=== PATIENT | male | born 1950 | race Caucasian/White ===

== ENCOUNTER 2017-03-26 07:09 | Day surgery (SDC) | payer MEDICARE, BC ==
[~2017-03-26 07:09] MED LIST: Lactated Ringers 1,000 ML IV SCH
[2017-03-26] MEDS ORDERED: Lactated Ringers 1,000 ML IV SCH (07:45)
[2017-03-26] MEDS ORDERED: Propofol 200 MG/20 ML SDV IV ONE (09:15)
--- NOTE | 2017-03-26 09:42 | PCM.OPNOTE ---
- General Post-Op/Procedure Note Date of Surgery/Procedure: 03/26/17 Operative Procedure(s): c scope Findings: normal exam Pre Op Diagnosis: screening Post-Op Diagnosis: normal exam Anesthesia Technique: MAC Primary Surgeon: Harsh Galvez Anesthesia Provider: Damian Corey Pathology: none Complications: None Condition: Good Free Text/Narrative:: see dictation
--- NOTE | 2017-03-26 10:08 | OR ---
DATE OF OPERATION: 03/26/2017 SURGEON: Harsh Galvez MD PROCEDURE PERFORMED: Colonoscopy. PREOPERATIVE DIAGNOSIS: Need for screening C-scope. POSTOPERATIVE DIAGNOSIS: Normal exam. INDICATIONS FOR PROCEDURE: This is a 67-year-old white male, who presents for a screening colonoscopy. He was offered and accepted same. DESCRIPTION OF OPERATION: After an excellent IV sedation was administered, digital rectal exam was performed. No marked abnormality was noted. The flexible colonoscope was inserted and advanced to the cecum without difficulty. The prep was excellent. The following findings were noted. Ascending colon, unremarkable. Transverse colon, unremarkable. Descending colon, unremarkable. Sigmoid and rectum, unremarkable. Colon was deflated. The scope was removed. The patient tolerated the procedure well, and was taken to recovery room in good condition. Repeat colonoscopy in 10 years. /[id number] /MODL
[2017-03-26 10:24] VITALS: BP 138/64
== END 2017-03-26 10:33 | disposition home or self-care (01) ==
LOC: FB.SDS 07:09
PROVIDERS: ATTEND Surgery
DX: Z12.11 Encounter for screening for malignant neoplasm of colon (principal); E78.4 Other hyperlipidemia; M19.019 Primary osteoarthritis, unspecified shoulder; H40.1131 Primary open-angle glaucoma, bilateral, mild stage; I10 Essential (primary) hypertension; Z90.89 Acquired absence of other organs; Z79.899 Other long term (current) drug therapy
CPT/HCPCS: 00810; 45378; J2704; J7120

== ENCOUNTER 2019-05-04 15:24 | Inpatient (IN) | payer BC, MEDICARE ==
[2019-05-04] MEDS ORDERED: Sodium Chloride 0.9% 10 ML Syringe FLUSH PRN (15:50)
--- NOTE | 2019-05-04 16:57 | PCM.HP.2 ---
H&P History of Present Illness - General Date of Service: 05/04/19 Admit Problem/Dx: Admission Diagnosis/Problem Admission Diagnosis/Problem Pneumonia Source of Information: Patient History Limitations: Reports: No Limitations - History of Present Illness Initial Comments - Free Text/Narative: This is a 69-year-old male patient that's had over two-week history of cough that's productive. He has progressively become weaker. He saw Ioana Almazan who diagnosed a left lower lobe pneumonia and felt he should be admitted. He says of fevers and chills but no vomiting. Can feel short of breath at times but no wheezing. He says he coughed so hard that is incontinent of urine and stool at times. He has not been getting any better and has not been treated as of yet. He states there is a red tinges in sputum thinks his blood. - Related Data Allergies/Adverse Reactions: Allergies Allergy/AdvReac Type Severity Reaction Status Date / Time No Known Allergies Allergy Verified 03/02/16 04:16 Home Medications: Home Meds Aspirin [Ecotrin EC] 81 mg PO DAILY 03/25/17 [History] Atenolol/Chlorthalidone [Atenolol-Chlorthalidone 50-25] 1 tab PO DAILY 03/25/17 [History] Latanoprost 1 drop EYEBOTH BEDTIME 03/25/17 [History] atorvaSTATin [Lipitor] 40 mg PO DAILY 03/25/17 [History] Ibuprofen 800 mg PO TID PRN 05/04/19 [History] Past Medical History HEENT History: Reports: Glaucoma, Impaired Vision Cardiovascular History: Reports: High Cholesterol, Hypertension Respiratory History: Reports: None Gastrointestinal History: Reports: None Genitourinary History: Reports: None Neurological History: Reports: Concussion, Seizure Other Neuro History: HAD CONCUSSION 02/22/1977. DEVELOPED SEIZURE 04/23/1977. [facility] TOOK MED FOR THIS, BUT STATES HAS NOT BEEN ON MEDS SINCE 1978. Psychiatric History: Reports: None Endocrine/Metabolic History: Reports: None Hematologic History: Reports: None Immunologic History: Reports: None Oncologic (Cancer) History: Reports: None Dermatologic History: Reports: None - Infectious Disease History Infectious Disease History: Reports: None - Past Surgical History Head Surgeries/Procedures: Reports: None HEENT Surgical History: Reports: Tonsillectomy Neurological Surgical History: Reports: None Musculoskeletal Surgical History: Reports: Knee Replacement, Other (See Below) Other Musculoskeletal Surgeries/Procedures:: RIGHT TOTAL HIP 2005 right knee replacement Social & Family History - Family History Family Medical History: Noncontributory GI: Reports: None Other OBGYN Family History: MOTHER HAD BREAST CA - Tobacco Use Smoking Status *Q: Never Smoker Second Hand Smoke Exposure: No - Caffeine Use Caffeine Use: Reports: Coffee - Recreational Drug Use Recreational Drug Use: No H&P Review of Systems - Review of Systems: Review Of Systems: See Below General: Reports: Fever, Chills, Weakness HEENT: Reports: No Symptoms Pulmonary: Reports: Shortness of Breath, Cough, Sputum, Hemoptysis Cardiovascular: Reports: No Symptoms Gastrointestinal: Reports: Stool Incontinence Genitourinary: Reports: Other (Incontinence) Musculoskeletal: Reports: No Symptoms Skin: Reports: No Symptoms Psychiatric: Reports: No Symptoms Neurological: Reports: No Symptoms Hematologic/Lymphatic: Reports: No Symptoms Immunologic: Reports: No Symptoms Exam - Exam Exam: See Below - Vital Signs Vital Signs: Last Vital Signs Temp 100.7 F H 05/04/19 15:50 Pulse 84 05/04/19 15:50 Resp 18 05/04/19 15:50 BP 111/70 05/04/19 15:50 Pulse Ox 89 L 05/04/19 15:50 Weight: 195 lb 8 oz - Exam General: Alert, Oriented, Cooperative HEENT: Hearing Intact, Posterior Pharynx Clear, TMs Clear. No: Mucosa Moist & [place] Neck: Supple, Trachea Midline. No: Lymphadenopathy Lungs: Clear to Auscultation, Normal Respiratory Effort, Decreased Breath Sounds. No: Crackles, Rales, Rhonchi Cardiovascular: Regular Rate, Regular Rhythm. No: Systolic Murmur GI/Abdominal Exam: Normal Bowel Sounds, Soft, Non-Tender, No Organomegaly, No Distention, No Abnormal Bruit, No Mass Back Exam: Normal Inspection, Full Range of Motion Extremities: Normal Inspection, Non-Tender, No Pedal Edema Skin: Warm, Dry, Intact Neuro Extensive - Mental Status: Alert Psychiatric: Alert Sepsis Event Note - Evaluation Sepsis Screening Result: No Definite Risk - Focused Exam Vital Signs: Vital Signs Temp Pulse Resp BP Pulse Ox 05/04/19 15:50 100.7 F H 84 18 111/70 89 L Date Exam was Performed: 05/04/19 Time Exam was Performed: 16:52 - Problem List (1) Left lower lobe pneumonia SNOMED Code(s): 778034978 ICD Code: J18.9 - PNEUMONIA, UNSPECIFIED ORGANISM Status: Acute Current Visit: Yes (2) Palliative care status SNOMED Code(s): 521929953 ICD Code: Z51.5 - ENCOUNTER FOR PALLIATIVE CARE Status: Acute Current Visit: Yes Problem List Initiated/Reviewed/Updated: Yes Orders Last 24hrs: Active Orders 24 hr Category Date Time Status Patient Status [ADT] Routine ADT 05/04/19 15:50 Active Height and Weight [RC] DAILY Care 05/04/19 15:50 Active Intake and Output [RC] QSHIFT Care 05/04/19 15:51 Active Oxygen Therapy [RC] PRN Care 05/04/19 15:50 Active Up ad Kitty [RC] ASDIRECTED Care 05/04/19 15:50 Active VTE/DVT Education [RC] Per Unit Routine Care 05/04/19 15:50 Active Vital Signs [RC] Q4H Care 05/04/19 15:50 Active Regular Diet [DIET] Diet 05/04/19 Dinner Active CBC WITH AUTO DIFF [HEME] AM Lab 05/05/19 05:11 Ordered COMPREHENSIVE METABOLIC PN,CMP [CHEM] AM Lab 05/05/19 05:11 Ordered CULTURE BLOOD [BC] Urgent Lab 05/04/19 16:14 Received CULTURE BLOOD [BC] Urgent Lab 05/04/19 16:20 Received CULTURE SPUTUM + SMEAR [RM] Routine Lab 05/04/19 15:50 Ordered UA W/MICROSCOPIC [URIN] Routine Lab 05/04/19 15:50 Ordered Enoxaparin [Lovenox] Med 05/04/19 16:00 Ordered 40 mg SUBCUT Q24H Levofloxacin/Dextrose 5%-Water [Levaquin in D5W 750 MG/ Med 05/04/19 16:00 Active 150 ML] 750 mg Premix Bag 1 bag IV Q24H Sodium Chloride 0.9% [Normal Saline] 1,000 ml Med 05/04/19 16:00 Active IV ASDIRECTED Sodium Chloride 0.9% [Saline Flush] Med 05/04/19 15:50 Active 10 ml FLUSH ASDIRECTED PRN Blood Culture x2 Reflex Set [OM.PC] Urgent Oth 05/04/19 15:50 Ordered Peripheral IV Insertion Adult [OM.PC] Routine Oth 05/04/19 15:50 Ordered Resuscitation Status Routine Resus Stat 05/04/19 15:50 Ordered Medication Orders Enoxaparin Sodium (Lovenox) 40 mg SUBCUT Q24H JOSE Sodium Chloride (Normal Saline) 1,000 mls @ 125 mls/hr IV ASDIRECTED JOSE Levofloxacin/Dextrose 750 mg/ (Premix) 150 mls @ 100 mls/hr IV Q24H JOSE Sodium Chloride (Saline Flush) 10 ml FLUSH ASDIRECTED PRN PRN Reason: Keep Vein Open Assessment/Plan Comment:: 1. Admit inpatient. 2. IV fluids. 3. Blood cultures and sputum cultures. 4. Levaquin 750 IV every 24 hours 5. Up ad kitty. 6. Daily weights input and output 7. VTE prophylaxis with Lovenox 8. Patient wants to be DO NOT RESUSCITATE 9. Duo nebs when necessary. 10. Oxygen keep saturations greater than 90% - Mortality Measure Prognosis:: Good
[2019-05-04] MEDS ORDERED: Ibuprofen 800 MG Tab PO PRN (16:58)
[2019-05-04] MEDS: Levofloxacin/Dextrose 5%-Water 750 MG in Premix Bag 1 BAG IV SCH (17:23)
[2019-05-04] MEDS: Sodium Chloride 0.9% 1,000 ML IV SCH (17:23)
[2019-05-04] MEDS: Albuterol/Ipratropium 3.0-0.5 MG/3 ML Neb Soln NEB PRN (20:08)
[2019-05-04] MEDS ORDERED: Latanoprost 0.005% Ophth Soln 2.5 ML Bottle EYEBOTH SCH (21:00)
[2019-05-05] MEDS: Sodium Chloride 0.9% 1,000 ML IV SCH ×3 (01:47→23:13)
--- NOTE | 2019-05-05 08:24 | PCM.PN ---
- General Info Date of Service: 05/05/19 Admission Dx/Problem (Free Text): The patient states he still has a cough that's productive. He feels weak and shortness of breath with exertion. He denies fevers, chills, wheezing. - Patient Data Vitals - Most Recent: Last Vital Signs Temp 98.6 F 05/05/19 01:35 Pulse 77 05/05/19 01:35 Resp 18 05/05/19 06:00 BP 120/73 05/05/19 01:35 Pulse Ox 93 L 05/05/19 01:35 Weight - Most Recent: 197 lb I&O - Last 24 Hours: Intake & Output 05/04/19 05/05/19 05/05/19 22:59 06:59 14:59 Intake Total 268 1132 Output Total 1200 Balance 268 -68 Lab Results Last 24 Hours: Laboratory Results - last 24 hr 05/04/19 05/05/19 05/05/19 Range/Units 21:55 06:30 06:30 WBC 18.8 H (4.5-12.0) X10-3/uL RBC 3.62 L (4.30-5.75) x10(6)uL Hgb 10.9 L (13.5-17.8) g/dL Hct 32.5 (30.0-51.3) % MCV 89.9 (80-96) fL MCH 30.1 (27.7-33.6) pg MCHC 33.5 (32.2-35.4) g/dL RDW 12.2 (11.5-15.5) % Plt Count 538 H (125-369) X10(3)uL MPV 6.3 L (7.4-10.4) fL Add Manual Diff Yes Neutrophils % (Manual) 85 H (46-82) % Band Neutrophils % 2 (0-6) % Lymphocytes % (Manual) 12 L (13-37) % Monocytes % (Manual) 1 L (4-12) % Sodium 140 (135-145) mmol/L Potassium 2.8 L* (3.5-5.3) mmol/L Chloride 101 (100-110) mmol/L Carbon Dioxide 34 H (21-32) mmol/L BUN 16 (7-18) mg/dL Creatinine 0.9 (0.70-1.30) mg/dL Est Cr Clr Drug Dosing 81.11 mL/min Estimated GFR (MDRD) > 60 (>60) BUN/Creatinine Ratio 17.8 (9-20) Glucose 112 (80-116) mg/dL Calcium 8.7 (8.6-10.2) mg/dL Total Bilirubin 0.6 (0.1-1.3) mg/dL AST 78 H (5-25) IU/L ALT 59 H (12-36) U/L Alkaline Phosphatase 106 (56-112) IU/L Total Protein 6.7 (6.0-8.0) g/dL Albumin 1.7 L* (3.2-4.6) g/dL Globulin 5.0 g/dL Albumin/Globulin Ratio 0.3 Urine Color [place] (YELLOW) Urine Appearance Clear (CLEAR) Urine pH 6.0 (5.0-6.5) Ur Specific [place] 1.010 (1.010-1.025) Urine Protein 30 H (NEGATIVE) mg/dL Urine Glucose (UA) Normal (NORMAL) mg/dL Urine Ketones Negative (NEGATIVE) mg/dL Urine Occult Blood Moderate H (NEGATIVE) Urine Nitrite Negative (NEGATIVE) Urine Bilirubin Small H (NEGATIVE) Urine Urobilinogen 4 H (NEGATIVE) mg/dL Ur Leukocyte Esterase Negative (NEGATIVE) Urine RBC 5-10 H (0-5) Urine WBC 0-5 (0-5) Ur Squamous Epith Cells Few H (NS,R,O) Urine Bacteria Moderate H (NS) Urine Mucus Few H (NS) Med Orders - Current: Current Medications Albuterol/Ipratropium (Duoneb 3.0-0.5 Mg/3 Ml) 3 ml NEB Q4H PRN PRN Reason: Dyspnea Last Admin: 05/04/19 20:08 Dose: 3 ml Aspirin (Halfprin) 81 mg PO DAILY [facility] Atenolol/Chlorthalidone (Tenoretic 50) 1 tab PO DAILY [facility] Atorvastatin Calcium (Lipitor) 40 mg PO DAILY [facility] Enoxaparin Sodium (Lovenox) 40 mg SUBCUT Q24H [facility] Sodium Chloride (Normal Saline) 1,000 mls @ 100 mls/hr IV ASDIRECTED [facility] Last Admin: 05/05/19 01:47 Dose: 125 mls/hr Levofloxacin/Dextrose 750 mg/ (Premix) 150 mls @ 100 mls/hr IV Q24H JOSE Last Admin: 05/04/19 17:23 Dose: 100 mls/hr Ibuprofen (Motrin) 800 mg PO TID PRN PRN Reason: Pain Latanoprost (Xalatan 0.005% Ophth Soln) 0 ml EYEBOTH BEDTIME JOSE Sodium Chloride (Saline Flush) 10 ml FLUSH ASDIRECTED PRN PRN Reason: Keep Vein Open Tamsulosin HCl (Flomax) 0.4 mg PO DAILY JOSE Discontinued Medications Latanoprost (Xalatan 0.005% Ophth Soln) 0 ml EYEBOTH BEDTIME JOSE Last Admin: 05/04/19 20:07 Dose: 1 drop - Exam General: Alert, Oriented, Cooperative Neck: Supple Lungs: Normal Respiratory Effort, Rhonchi (Diffuse bilateral) Cardiovascular: Regular Rate, Regular Rhythm, No Murmurs Extremities: No Pedal Edema Sepsis Event Note - Evaluation Sepsis Screening Result: No Definite Risk - Focused Exam Vital Signs: Vital Signs Temp Pulse Resp BP Pulse Ox 05/05/19 06:00 18 05/05/19 01:35 98.6 F 77 18 120/73 93 L 05/04/19 22:00 98.8 F 84 20 120/74 93 L Date Exam was Performed: 05/05/19 Time Exam was Performed: 08:21 - Problem List & Annotations (1) Left lower lobe pneumonia SNOMED Code(s): 111377032 Code(s): J18.9 - PNEUMONIA, UNSPECIFIED ORGANISM Status: Acute Current Visit: Yes (2) Palliative care status SNOMED Code(s): 732853926 Code(s): Z51.5 - ENCOUNTER FOR PALLIATIVE CARE Status: Acute Current Visit: Yes (3) Hypokalemia SNOMED Code(s): 59267844 Code(s): E87.6 - HYPOKALEMIA Status: Acute Current Visit: Yes (4) Thrombocytosis SNOMED Code(s): 9581524 Code(s): D47.3 - ESSENTIAL (HEMORRHAGIC) THROMBOCYTHEMIA Status: Acute Current Visit: Yes (5) Microscopic hematuria SNOMED Code(s): 535270062 Code(s): R31.29 - OTHER MICROSCOPIC HEMATURIA Status: Acute Current Visit : Yes - Problem List Review Problem List Initiated/Reviewed/Updated: Yes - My Orders Last 24 Hours: My Active Orders 05/04/19 15:50 Patient Status [ADT] Routine Height and Weight [RC] DAILY Oxygen Therapy [RC] PRN Up ad Kitty [RC] ASDIRECTED VTE/DVT Education [RC] Per Unit Routine Vital Signs [RC] QSHIFT CULTURE SPUTUM + SMEAR [RM] Routine Sodium Chloride 0.9% [Saline Flush] 10 ml FLUSH ASDIRECTED PRN Blood Culture x2 Reflex Set [OM.PC] Urgent Peripheral IV Insertion Adult [OM.PC] Routine Resuscitation Status Routine 05/04/19 15:51 Intake and Output [RC] 06,,05/04/19 16:00 Levofloxacin/Dextrose 5%-Water [Levaquin in D5W 750 MG/150 ML] 750 mg Premix Bag 1 bag IV Q24H Sodium Chloride 0.9% [Normal Saline] 1,000 ml IV ASDIRECTED 05/04/19 16:14 CULTURE BLOOD [BC] Urgent 05/04/19 16:20 CULTURE BLOOD [BC] Urgent 05/04/19 16:58 RT Aerosol Therapy [RC] ASDIRECTED Albuterol/Ipratropium [DuoNeb 3.0-0.5 MG/3 ML] 3 ml NEB Q4H PRN Ibuprofen [Motrin] 800 mg PO TID PRN 05/04/19 Dinner Regular Diet [DIET] 05/05/19 07:47 Latanoprost [Xalatan 0.005% Ophth Soln] 0 ml EYEBOTH BEDTIME 05/05/19 08:00 Enoxaparin [Lovenox] 40 mg SUBCUT Q24H 05/05/19 09:00 Aspirin [Halfprin] 81 mg PO DAILY Atenolol/Chlorthalidone [Tenoretic 50] 1 tab PO DAILY Potassium Chloride [Klor-Con M20] 20 meq PO BID Tamsulosin [Flomax] 0.4 mg PO DAILY atorvaSTATin [Lipitor] 40 mg PO DAILY 05/06/19 05:11 CBC WITH AUTO DIFF [HEME] AM 05/06/19 06:00 BASIC METABOLIC PANEL,BMP [CHEM] AM - Plan Plan:: 1. CBC and BMP in the a.m. 2. UA repeat 2 days for now on May 07. 3. Potassium 20 milk was twice a day by mouth. 4. Up in chair and ambulate 5. Slow IV rate to 100 mL an hour 6. Continue current care the rest of the orders.
[2019-05-05] MEDS: Aspirin 81 MG Tab.EC PO SCH (09:38)
[2019-05-05] MEDS: Enoxaparin 40 MG/0.4 ML Syringe SUBCUT SCH (09:38)
[2019-05-05] MEDS: Tamsulosin 0.4 MG Cap.ER PO SCH (09:38)
[2019-05-05] MEDS: Atenolol/Chlorthalidone 50-25 MG Tab PO SCH (09:39)
[2019-05-05] MEDS: Potassium Chloride 20 MEQ Tab.ER PO SCH ×2 (09:39→20:00)
[2019-05-05] MEDS: atorvaSTATin 40 MG Tab PO SCH (09:39)
[2019-05-05] MEDS: Levofloxacin/Dextrose 5%-Water 750 MG in Premix Bag 1 BAG IV SCH (15:33)
[2019-05-05] MEDS: Albuterol/Ipratropium 3.0-0.5 MG/3 ML Neb Soln NEB PRN ×2 (15:36→19:56)
[2019-05-05] MEDS ORDERED: Ondansetron 4 MG Tab.DIS PO PRN (17:54)
[2019-05-05] MEDS: Latanoprost 0.005% Ophth Soln 2.5 ML Bottle EYEBOTH SCH (20:00)
[2019-05-06] MEDS: Albuterol/Ipratropium 3.0-0.5 MG/3 ML Neb Soln NEB PRN ×3 (06:07→21:00)
[2019-05-06] MEDS: Enoxaparin 40 MG/0.4 ML Syringe SUBCUT SCH (07:37)
--- NOTE | 2019-05-06 08:03 | PCM.PN ---
- General Info Date of Service: 05/06/19 Admission Dx/Problem (Free Text): States he feels better today. His appetite is coming back. He denies any diarrhea, dysuria. He was getting short of breath when he walks to the bathroom but that's getting better. He does have coughing fits at times. And right chest pain when he coughs. He denies fevers or chills. - Patient Data Vitals - Most Recent: Last Vital Signs Temp 97.5 F 05/06/19 07:59 Pulse 73 05/06/19 07:59 Resp 16 05/06/19 07:59 BP 121/68 05/06/19 07:59 Pulse Ox 95 05/06/19 07:59 Weight - Most Recent: 196 lb 12.8 oz I&O - Last 24 Hours: Intake & Output 05/05/19 05/06/19 05/06/19 22:59 06:59 14:59 Intake Total 359 1012 Output Total 600 1000 Balance -241 12 Lab Results Last 24 Hours: Laboratory Results - last 24 hr 05/06/19 05/06/19 Range/Units 06:35 06:35 WBC 14.7 H (4.5-12.0) X10-3/uL RBC 3.56 L (4.30-5.75) x10(6)uL Hgb 10.9 L (13.5-17.8) g/dL Hct 31.9 (30.0-51.3) % MCV 89.6 (80-96) fL MCH 30.6 (27.7-33.6) pg MCHC 34.1 (32.2-35.4) g/dL RDW 12.1 (11.5-15.5) % Plt Count 547 H (125-369) X10(3)uL MPV 6.2 L (7.4-10.4) fL Neut % (Auto) 77.1 (46-82) % Lymph % (Auto) 16.1 (13-37) % [place] % (Auto) 6.2 (4-12) % Eos % (Auto) 0 L (1.0-5.0) % Baso % (Auto) 0 (0-2) % Neut # (Auto) 11.4 H (1.6-8.3) # Lymph # (Auto) 2.4 (0.6-5.0) # [place] # (Auto) 0.9 (0.0-1.3) # Eos # (Auto) 0.0 (0.0-0.8) # Baso # (Auto) 0.0 (0.0-0.2) # Sodium 142 (135-145) mmol/L Potassium 2.6 L* (3.5-5.3) mmol/L Chloride 104 (100-110) mmol/L Carbon Dioxide 29 (21-32) mmol/L BUN 10 (7-18) mg/dL Creatinine 0.9 (0.70-1.30) mg/dL Est Cr Clr Drug Dosing 81.11 mL/min Estimated GFR (MDRD) > 60 (>60) BUN/Creatinine Ratio 11.1 (9-20) Glucose 130 H (80-116) mg/dL Calcium 8.6 (8.6-10.2) mg/dL [place] Results Last 24 Hours: Microbiology 05/04/19 16:14 Aerobic Blood Culture - Preliminary Blood - Venous NO GROWTH AFTER 1 DAY Anaerobic Blood Culture - Preliminary NO GROWTH AFTER 1 DAY 05/04/19 16:20 Aerobic Blood Culture - Preliminary Blood - Venous - Lab Draw NO GROWTH AFTER 1 DAY Anaerobic Blood Culture - Preliminary NO GROWTH AFTER 1 DAY Med Orders - Current: Current Medications Albuterol/Ipratropium (Duoneb 3.0-0.5 Mg/3 Ml) 3 ml NEB Q4H PRN PRN Reason: Dyspnea Last Admin: 05/06/19 06:07 Dose: 3 ml Aspirin (Halfprin) 81 mg PO DAILY [facility] Last Admin: 05/05/19 09:38 Dose: 81 mg Atenolol/Chlorthalidone (Tenoretic 50) 1 tab PO DAILY [facility] Last Admin: 05/05/19 09:39 Dose: 1 tab Atorvastatin Calcium (Lipitor) 40 mg PO DAILY [facility] Last Admin: 05/05/19 09:39 Dose: 40 mg Enoxaparin Sodium (Lovenox) 40 mg SUBCUT Q24H [facility] Last Admin: 05/06/19 07:37 Dose: 40 mg Levofloxacin/Dextrose 750 mg/ (Premix) 150 mls @ 100 mls/hr IV Q24H [facility] Last Admin: 05/05/19 15:33 Dose: 100 mls/hr Ibuprofen (Motrin) 800 mg PO TID PRN PRN Reason: Pain Latanoprost (Xalatan 0.005% Ophth Soln) 0 ml EYEBOTH BEDTIME [facility] Last Admin: 05/05/19 20:00 Dose: 1 drop Ondansetron HCl (Zofran Odt) 4 mg PO Q6H PRN PRN Reason: Nausea/Vomiting Sodium Chloride (Saline Flush) 10 ml FLUSH ASDIRECTED PRN PRN Reason: Keep Vein Open Tamsulosin HCl (Flomax) 0.4 mg PO DAILY [facility] Last Admin: 05/05/19 09:38 Dose: 0.4 mg Discontinued Medications Sodium Chloride (Normal Saline) 1,000 mls @ 100 mls/hr IV ASDIRECTED [facility] Last Infusion: 05/05/19 23:16 Dose: 100 mls/hr Latanoprost (Xalatan 0.005% Ophth Soln) 0 ml EYEBOTH BEDTIME [facility] Last Admin: 05/04/19 20:07 Dose: 1 drop Potassium Chloride (Klor-Con M20) 20 meq PO BID [facility] Last Admin: 05/05/19 20:00 Dose: 20 meq - Exam General: Alert, Oriented, Cooperative Lungs: Normal Respiratory Effort, Rales (Bilateral bases) Cardiovascular: Regular Rate, Regular Rhythm, Murmurs Extremities: No Pedal Edema Sepsis Event Note - Evaluation Sepsis Screening Result: No Definite Risk - Focused Exam Vital Signs: Vital Signs Temp Pulse Resp BP Pulse Ox 05/06/19 07:59 97.5 F 73 16 121/68 95 05/06/19 01:00 98.7 F 76 20 108/70 94 L Date Exam was Performed: 05/06/19 Time Exam was Performed: 08:00 - Problem List & Annotations (1) Left lower lobe pneumonia SNOMED Code(s): 787715669 Code(s): J18.9 - PNEUMONIA, UNSPECIFIED ORGANISM Status: Acute Current Visit: Yes (2) Palliative care status SNOMED Code(s): 195613217 Code(s): Z51.5 - ENCOUNTER FOR PALLIATIVE CARE Status: Acute Current Visit: Yes (3) Hypokalemia SNOMED Code(s): 50382094 Code(s): E87.6 - HYPOKALEMIA Status: Acute Current Visit: Yes (4) Thrombocytosis SNOMED Code(s): 9110495 Code(s): D47.3 - ESSENTIAL (HEMORRHAGIC) THROMBOCYTHEMIA Status: Acute Current Visit: Yes (5) Microscopic hematuria SNOMED Code(s): 890222710 Code(s): R31.29 - OTHER MICROSCOPIC HEMATURIA Status: Acute Current Visit : Yes - Problem List Review Problem List Initiated/Reviewed/Updated: Yes - My Orders Last 24 Hours: My Active Orders 05/05/19 07:47 Latanoprost [Xalatan 0.005% Ophth Soln] 0 ml EYEBOTH BEDTIME 05/05/19 08:00 Enoxaparin [Lovenox] 40 mg SUBCUT Q24H 05/05/19 09:00 Aspirin [Halfprin] 81 mg PO DAILY Atenolol/Chlorthalidone [Tenoretic 50] 1 tab PO DAILY Tamsulosin [Flomax] 0.4 mg PO DAILY atorvaSTATin [Lipitor] 40 mg PO DAILY 05/05/19 17:54 Ondansetron [Zofran ODT] 4 mg PO Q6H PRN 05/05/19 19:15 CULTURE SPUTUM + SMEAR [RM] Routine 05/06/19 07:58 Convert IV to Saline Lock [OM.PC] Routine 05/06/19 09:00 Potassium Chloride [Klor-Con M20] 20 meq PO TID 05/07/19 06:00 UA W/MICROSCOPIC [URIN] Routine - Plan Plan:: 1. CBC, UA and BMP in the a.m. 2. DC I/Os and daily weights. 3. Increased potassium 20 mg from twice a day to 3 times a day. 4. Up in chair and ambulate frequently. 5. DC IV and saline lock.
[2019-05-06] MEDS: Tamsulosin 0.4 MG Cap.ER PO SCH (08:44)
[2019-05-06] MEDS: Potassium Chloride 20 MEQ Tab.ER PO SCH ×3 (08:45→20:55)
[2019-05-06] MEDS: Aspirin 81 MG Tab.EC PO SCH (08:45)
[2019-05-06] MEDS: Atenolol/Chlorthalidone 50-25 MG Tab PO SCH (08:45)
[2019-05-06] MEDS: atorvaSTATin 40 MG Tab PO SCH (08:45)
[2019-05-06] MEDS: Levofloxacin/Dextrose 5%-Water 750 MG in Premix Bag 1 BAG IV SCH (16:30)
[2019-05-06] MEDS: Latanoprost 0.005% Ophth Soln 2.5 ML Bottle EYEBOTH SCH (20:55)
[2019-05-07] MEDS: Enoxaparin 40 MG/0.4 ML Syringe SUBCUT SCH (08:20)
[2019-05-07] MEDS: Tamsulosin 0.4 MG Cap.ER PO SCH (08:20)
[2019-05-07] MEDS: Atenolol/Chlorthalidone 50-25 MG Tab PO SCH (08:21)
[2019-05-07] MEDS: Aspirin 81 MG Tab.EC PO SCH (08:21)
[2019-05-07] MEDS: Potassium Chloride 20 MEQ Tab.ER PO SCH (08:21)
[2019-05-07] MEDS: atorvaSTATin 40 MG Tab PO SCH (08:22)
[2019-05-07 14:04] VITALS: BP 112/76; PULSE 82
[2019-05-07] MEDS ORDERED: Levofloxacin 750 MG Tab PO SCH (16:00)
[2019-05-07] MEDS ORDERED: Potassium Chloride 20 MEQ Tab.ER PO SCH (21:00)
--- NOTE | 2019-05-08 03:02 | DISCH ---
DISCHARGE DATE: 05/07/2019 PRIMARY DIAGNOSIS: Left lower lobe pneumonia. FINAL DIAGNOSIS: Left lower lobe pneumonia. OTHER DIAGNOSES: 1. Chronic essential hypertension. 2. Severe hypokalemia. 3. Hyperlipidemia. 4. Osteoarthritis. OPERATIONS: None. COMPLICATIONS: None. SUMMARY: Abran is a 69-year-old man with the above medical problems, who came after 2 weeks of illness with weakness, cough, fever, chills, and was found to have a left lower lobe pneumonia in the clinic. He was admitted to the hospital and started on IV Levaquin with respiratory therapy treatments. Admission laboratory included a white count of 18,000, hemoglobin 10.9. Potassium of 2.8 with a creatinine 0.9. His potassium was replaced orally. After IV antibiotics, he was switched to oral Levaquin and by 05/07/2019 was much improved and strong enough for discharge. Laboratory on the day of discharge included white count down 8600, hemoglobin 11.1, potassium 3.4. Urinalysis clear. The patient is discharged to home in good condition to continue medications as follows: 1. Levaquin 750 mg daily x7 days. 2. Potassium chloride 20 mEq daily. 3. Allopurinol 300 mg daily. 4. Flomax 0.4 mg daily. 5. Xalatan eye drops one drop both eyes at bedtime. 6. Ibuprofen 800 mg t.i.d. p.r.n. 7. Atorvastatin 40 mg daily. 8. Tenoretic 50-25 one tab daily. 9. Aspirin 81 mg daily. He is asked to have a followup appointment in the clinic in 2 weeks and call should there be questions or problems prior to that time. /[id number] BIBI/MELCHOR
== END 2019-05-07 11:05 | disposition home or self-care (01) | DRG 195 ==
LOC: FB.MS 15:24
PROVIDERS: ADMIT Family Medicine; ATTEND Family Medicine
DX: J18.9 Pneumonia, unspecified organism (principal); Z51.5 Encounter for palliative care; I10 Essential (primary) hypertension; E87.6 Hypokalemia; E78.5 Hyperlipidemia, unspecified; M19.90 Unspecified osteoarthritis, unspecified site; H54.7 Unspecified visual loss; R31.29 Other microscopic hematuria; E78.00 Pure hypercholesterolemia, unspecified; R32 Unspecified urinary incontinence; Z96.651 Presence of right artificial knee joint; H40.9 Unspecified glaucoma; Z96.641 Presence of right artificial hip joint; D47.3 Essential (hemorrhagic) thrombocythemia; Z90.89 Acquired absence of other organs; Z79.899 Other long term (current) drug therapy; Z79.82 Long term (current) use of aspirin
CPT/HCPCS: 36415; 80048; 80053; 81001; 85025; 87040; 87070; 87205; 94640; A9270-GY; J1650; J1956; J7030; J7620-GY

== ENCOUNTER 2024-04-16 00:34 | Emergency (ER) | payer MEDICARE ==
[2024-04-16] MEDS: Sodium Chloride 0.9% 10 ML Syringe FLUSH PRN (00:47)
[2024-04-16 01:00] LABS: BASOPHILS PERCENT AUTO 0.1 % (0.3-3.8); EOSINOPHILS ABSOLUTE AUTO 0.1 x10-3/uL (0.0-0.6); EOSINOPHILS PERCENT AUTO 1.1 % (0.1-6.8); HEMATOCRIT 40.3 % (38.3-50.1); HEMOGLOBIN 13.4 g/dL (12.9-17.7); LYMPHOCYTES ABSOLUTE AUTO 1.5 x10-3/uL (0.5-4.5); MEAN CORPUSCULAR HEMOGLOBIN 32.7 pg (27.0-33.3); MEAN CORPUSCULAR HGB CONC 33.2 g/dL (28.7-35.3); MEAN CORPUSCULAR VOLUME 98.4 fL (80.8-98.7); MEAN PLATELET VOLUME 6.7 fL (6.7-11.0); MONOCYTES ABSOLUTE AUTO 0.7 x10-3/uL (0.0-1.2); MONOCYTES PERCENT AUTO 5.5 % (5.5-15.2); NEUTROPHILS ABSOLUTE AUTO 10.4 x10-3/uL (1.7-6.9); NEUTROPHILS PERCENT AUTO 81.3 % (40.3-71.8); PLATELET COUNT,PLT 165 x10(3)uL (117-477); RED CELL DISTRIBUTION WIDTH 14.3 % (12.4-15.0); WHITE BLOOD CELL COUNT,WBC 12.7 x10-3/uL (3.2-10.1)
[2024-04-16 01:02] LABS: BLOOD UREA NITROGEN,BUN 24 mg/dL (7-18); BUN/CREATININE RATIO 21.8 (9-20); CALCIUM 9.1 mg/dL (8.6-10.2); CARBON DIOXIDE,CO2 31 mmol/L (21-32); CHLORIDE,CL 104 mmol/L (100-110); CREATININE 1.1 mg/dL (0.70-1.30); ESTIMATED GFR 71 mL/min (>60); GLUCOSE RANDOM 160 mg/dL (80-116); POTASSIUM,K 3.5 mmol/L (3.5-5.3); SODIUM,NA 143 mmol/L (135-145)
[2024-04-16 01:08] LABS: ALANINE AMINOTRANSFERASE,ALT 39 U/L (12-36); ALBUMIN 3.5 g/dL (3.2-4.6); ALKALINE PHOSPHATASE 78 IU/L (56-112); ASPARTATE AMNIOTRANSFERASE,AST 20 IU/L (5-25); BILIRUBIN TOTAL 0.5 mg/dL (0.1-1.3); PROTEIN TOTAL,TP 7.1 g/dL (6.0-8.0)
[2024-04-16 01:10] LABS: LIPASE 30 U/L (16-77); TROPONIN I 4.9 pg/mL (4.0-60.3)
[2024-04-16 01:11] LABS: C-REACTIVE PROTEIN < 0.50 mg/dL (<0.50)
[2024-04-16 01:24] LABS: LACTIC ACID 1.4 mmol/L (0.4-2.0)
[2024-04-16] MEDS: Sodium Chloride 0.9% 1,000 ML IV ONE (01:30)
[2024-04-16 02:08] LABS: BILIRUBIN,URINE NEGATIVE (NEGATIVE); GLUCOSE,URINE NORMAL (NORMAL); KETONES,URINE NEGATIVE (NEGATIVE); LEUKOCYTE ESTERASE,URINE NEGATIVE (NEGATIVE); NITRITE,URINE NEGATIVE (NEGATIVE); OCCULT BLOOD,URINE NEGATIVE (NEGATIVE); PROTEIN,URINE NEGATIVE (NEGATIVE); UROBILINOGEN,URINE NORMAL (NEGATIVE)
[2024-04-16 02:13] LABS: APPEARANCE,URINE CLEAR (CLEAR); COLOR,URINE YELLOW (YELLOW)
[2024-04-16] MEDS: Sodium Chloride 0.9% 1,000 ML IV SCH (02:35)
[2024-04-16] MEDS ORDERED: Morphine 2 MG/ML SYRINGE IVPUSH PRN (03:10)
[2024-04-16 06:07] LABS: BASOPHILS PERCENT AUTO 0.2 % (0.3-3.8); EOSINOPHILS ABSOLUTE AUTO 0.1 x10-3/uL (0.0-0.6); EOSINOPHILS PERCENT AUTO 0.9 % (0.1-6.8); HEMATOCRIT 36.5 % (38.3-50.1); HEMOGLOBIN 11.8 g/dL (12.9-17.7); LYMPHOCYTES ABSOLUTE AUTO 1.5 x10-3/uL (0.5-4.5); LYMPHOCYTES PERCENT AUTO 17.7 % (15.8-45.3); MEAN CORPUSCULAR HEMOGLOBIN 31.7 pg (27.0-33.3); MEAN CORPUSCULAR HGB CONC 32.3 g/dL (28.7-35.3); MEAN CORPUSCULAR VOLUME 98.2 fL (80.8-98.7); MEAN PLATELET VOLUME 6.8 fL (6.7-11.0); MONOCYTES ABSOLUTE AUTO 0.4 x10-3/uL (0.0-1.2); NEUTROPHILS ABSOLUTE AUTO 6.4 x10-3/uL (1.7-6.9); NEUTROPHILS PERCENT AUTO 76.3 % (40.3-71.8); PLATELET COUNT,PLT 160 x10(3)uL (117-477); RED BLOOD CELL COUNT 3.72 x10(6)uL (3.90-5.90); RED CELL DISTRIBUTION WIDTH 13.8 % (12.4-15.0); WHITE BLOOD CELL COUNT,WBC 8.4 x10-3/uL (3.2-10.1)
[2024-04-16 06:21] LABS: ALANINE AMINOTRANSFERASE,ALT 37 U/L (12-36); ALBUMIN 3.2 g/dL (3.2-4.6); ALKALINE PHOSPHATASE 73 IU/L (56-112); ASPARTATE AMNIOTRANSFERASE,AST 20 IU/L (5-25); BILIRUBIN TOTAL 0.7 mg/dL (0.1-1.3); BLOOD UREA NITROGEN,BUN 20 mg/dL (7-18); CALCIUM 8.4 mg/dL (8.6-10.2); CARBON DIOXIDE,CO2 31 mmol/L (21-32); CHLORIDE,CL 106 mmol/L (100-110); ESTIMATED GFR 79 mL/min (>60); GLUCOSE RANDOM 105 mg/dL (80-116); POTASSIUM,K 3.6 mmol/L (3.5-5.3); PROTEIN TOTAL,TP 6.4 g/dL (6.0-8.0); SODIUM,NA 143 mmol/L (135-145)
[2024-04-16 07:01] VITALS: BP 108/53; PULSE 42
== END 2024-04-16 08:25 ==
LOC: FB.ED 00:34
DX: K40.00 Bilateral inguinal hernia, with obstruction, without gangrene, not specified as recurrent (principal); K56.2 Volvulus; N28.1 Cyst of kidney, acquired; G30.9 Alzheimer's disease, unspecified; F02.B0 Dementia in other diseases classified elsewhere, moderate, without behavioral disturbance, psychotic disturbance, mood disturbance, and anxiety; I10 Essential (primary) hypertension; E78.00 Pure hypercholesterolemia, unspecified; Z96.651 Presence of right artificial knee joint; Z96.641 Presence of right artificial hip joint; Z79.899 Other long term (current) drug therapy
CPT/HCPCS: 36415; 74176; 80053; 81003; 83605; 83690; 84484; 85025; 86140; 93005; 93010; 96360; 96361; 99285; 99285-25; J7030

== ENCOUNTER 2024-05-14 19:06 | Emergency (ER) | payer MEDICAID, MEDICARE ==
[2024-05-14] MEDS ORDERED: Amoxicillin/Clavulanate K 875-125 MG Tab PO ONE (19:07)
[2024-05-14] MEDS ORDERED: Sodium Chloride 0.9% 10 ML Syringe FLUSH PRN (19:41)
[2024-05-14 19:43] VITALS: BP 143/61; PULSE 68
[2024-05-14] MEDS: Iopamidol 755 Mg/ML 100 ML Bottle IV SCH (20:22)
[2024-05-14] MEDS: Sodium Chloride 0.9% 1,000 ML IV SCH (20:26)
[2024-05-14] MEDS: Acetaminophen 500 MG Tab PO ONE (20:26)
== END 2024-05-14 22:15 | disposition home or self-care (01) ==
LOC: FB.ED 19:06
DX: K59.00 Constipation, unspecified (principal); J18.9 Pneumonia, unspecified organism; I10 Essential (primary) hypertension; E78.00 Pure hypercholesterolemia, unspecified; Z79.899 Other long term (current) drug therapy
CPT/HCPCS: 36415; 71045; 74177; 80053; 81001; 83605; 85025; 86140; 87428; 96360; 99203; 99285; A9270; J7030; Q9967